=== PATIENT | female | born 1985 | race Caucasian/White ===

== ENCOUNTER → 2017-01-27 | Outpatient (CLI) | payer BC, OTHER ==
--- NOTE | 2017-01-27 17:20 | REP ---
RIGHT ANKLE, FOUR VIEWS: HISTORY: Pain. There is no acute fracture or dislocation. The joint space is normal in appearance. Minimal soft tissue swelling is present over the lateral malleolus . IMPRESSION: There is no acute fracture or dislocation. Signed by Ric Lockhart MD 01/27/2017 05:22 P
== END ==
LOC: M SMT 15:41
PROVIDERS: ATTEND Physician Assistant
DX: M25.571 Pain in right ankle and joints of right foot (principal)

== ENCOUNTER → 2017-06-22 | Outpatient (REF) | payer OTHER | LOC: M LAB REF 20:50 | PROVIDERS: ATTEND Physician Assistant Medical | DX: N30.01 Acute cystitis with hematuria (principal) ==

== ENCOUNTER → 2018-11-17 | Outpatient (REF) | payer OTHER ==
[2018-11-19 15:32] LABS: HPV HYBRID CAPTURE II Negative (Negative)
== END ==
LOC: M LAB REF 17:32
PROVIDERS: ATTEND Advanced Practice Midwife
DX: Z12.4 Encounter for screening for malignant neoplasm of cervix (principal)

== ENCOUNTER → 2018-11-17 | Outpatient (REF) | payer OTHER ==
[2018-11-17 20:55] LABS: CHLAMYDIA DNA AMPLIFICATION NEGATIVE (NEGATIVE); GC DNA AMPLIFICATION NEGATIVE (NEGATIVE)
== END ==
LOC: M LAB REF 17:04
PROVIDERS: ATTEND Advanced Practice Midwife
DX: Z11.3 Encounter for screening for infections with a predominantly sexual mode of transmission (principal)

== ENCOUNTER → 2019-11-15 | Outpatient (CLI) | payer BC, OTHER ==
[2019-11-15 18:01] LABS: HCG, SERUM QUALITATIVE POSITIVE (NEGATIVE)
[2019-11-16 09:43] LABS: HCG, SERUM QUANTITATIVE 42 MIU/ML
== END ==
LOC: M LAB 16:27
PROVIDERS: ATTEND Advanced Practice Midwife
DX: T83.9XXA Unspecified complication of genitourinary prosthetic device, implant and graft, initial encounter (principal)

== ENCOUNTER → 2019-11-17 | Outpatient (CLI) | payer BC, OTHER | LOC: M PLALAB 09:25 | PROVIDERS: ATTEND Advanced Practice Midwife | DX: T83.9XXA Unspecified complication of genitourinary prosthetic device, implant and graft, initial encounter (principal); Y83.2 Surgical operation with anastomosis, bypass or graft as the cause of abnormal reaction of the patient, or of later complication, without mention of misadventure at the time of the procedure ==

== ENCOUNTER → 2019-11-20 | Outpatient (CLI) | payer BC, OTHER ==
--- NOTE | 2019-11-21 02:37 | REP ---
Clinical: IUD evaluation. Positive test. Technique: Transabdominal pelvic ultrasound followed by transvaginal examination for better evaluation of the endometrium and adnexa with color Doppler evaluation of the ovaries. Findings: Bladder is collapsed. Heterogeneous anteverted uterus is identified measuring 8.8 x 4.5 x 5.8 cm. Endometrial complex measures 3 mm thickness. IUD is identified extending into the fundal region of the uterus. No intrauterine or decidual reaction is appreciated. The right ovary is normal in appearance and vascularity without torsion and measures 2.3 x 2.4 x 2.2 cm (RI 0.55). The left ovary measures 3.1 x 2.3 x 2.4 cm (RI 0.61) and includes a complex 1.4 x 0.7 x 1.5 cm collection with surrounding vascularity as well as small amount of free fluid in the left adnexa and posterior cul-de-sac. Impression: 1. Normal appearance to the uterus with IUD identified and no evidence for decidual reaction or intrauterine . 2. Complex area at the left ovary with surrounding vascularity and small amount of free fluid. Findings are nonspecific and differential diagnosis includes resolving corpus luteum cyst, hemorrhagic physiologic cyst, and less likely ectopic cannot definitively be excluded. Correlation with serial HCG levels and close clinical observation may be warranted.
== END ==
LOC: M WHC 11-16 15:46
PROVIDERS: ATTEND Advanced Practice Midwife
DX: T83.9XXA Unspecified complication of genitourinary prosthetic device, implant and graft, initial encounter (principal); Y83.2 Surgical operation with anastomosis, bypass or graft as the cause of abnormal reaction of the patient, or of later complication, without mention of misadventure at the time of the procedure

== ENCOUNTER → 2019-11-20 | Outpatient (CLI) | payer BC ==
[2019-11-20 14:02] LABS: HCG, SERUM QUALITATIVE POSITIVE (NEGATIVE)
[2019-11-21 09:03] LABS: HCG, SERUM QUANTITATIVE 35 MIU/ML
== END ==
LOC: M PLALAB 11:04
PROVIDERS: ATTEND Advanced Practice Midwife
DX: T83.9XXA Unspecified complication of genitourinary prosthetic device, implant and graft, initial encounter (principal); Y83.2 Surgical operation with anastomosis, bypass or graft as the cause of abnormal reaction of the patient, or of later complication, without mention of misadventure at the time of the procedure

== ENCOUNTER → 2019-11-28 | Outpatient (REF) | payer OTHER | LOC: M LABDRWAD 15:04 → M LAB REF 15:04 | PROVIDERS: ATTEND Advanced Practice Midwife | DX: T83.9XXA Unspecified complication of genitourinary prosthetic device, implant and graft, initial encounter (principal); Y83.2 Surgical operation with anastomosis, bypass or graft as the cause of abnormal reaction of the patient, or of later complication, without mention of misadventure at the time of the procedure ==

== ENCOUNTER → 2019-12-11 | Outpatient (CLI) | payer BC, OTHER ==
--- NOTE | 2019-12-11 11:49 | REP ---
Clinical: Pelvic pain. Technique: Transabdominal pelvic ultrasound followed by transvaginal examination for better evaluation of the endometrium and adnexa with color evaluation of the ovaries. Findings: Bladder is incompletely distended but grossly normal in appearance. Normal anteverted uterus measures 9.6 x 4.6 x 5.8 cm. Endometrial complex measures 3.1 mm thickness. The bilateral ovaries are normal in vascularity without torsion. Right ovary measures 3.9 x 3.0 x 2.6 cm and includes multiple follicles along with 2.2 cm physiologic cyst / dominant follicle. Left ovary measures 3.1 x 2.0 x 2.7 cm and includes multiple small follicles. No pelvic fluid or adnexal mass lesion. Impression: 1. Essentially normal examination. 2. 2.2 cm simple likely physiologic cyst in the right ovary. If necessary consider reevaluation in 4-6 weeks to evaluate for resolution.
== END ==
LOC: M WHC 10:36
PROVIDERS: ATTEND Advanced Practice Midwife
DX: R10.2 Pelvic and perineal pain (principal)

== ENCOUNTER → 2019-12-21 | Outpatient (REF) | payer OTHER ==
[2019-12-21 16:07] LABS: CHLAMYDIA DNA AMPLIFICATION NEGATIVE (NEGATIVE); GC DNA AMPLIFICATION NEGATIVE (NEGATIVE)
== END ==
LOC: M SFHCWAGY 13:42
PROVIDERS: ATTEND Advanced Practice Midwife
DX: Z30.430 Encounter for insertion of intrauterine contraceptive device (principal)

== ENCOUNTER → 2021-03-18 | Outpatient (REF) | payer OTHER | LOC: M SFHCWAGY 16:44 | PROVIDERS: ATTEND Advanced Practice Midwife | DX: O36.80X0 Pregnancy with inconclusive fetal viability, not applicable or unspecified (principal); Z3A.00 Weeks of gestation of pregnancy not specified ==

== ENCOUNTER → 2021-03-20 | Outpatient (REF) | payer OTHER | LOC: M PLALAB 09:55 | PROVIDERS: ATTEND Advanced Practice Midwife | DX: O36.80X0 Pregnancy with inconclusive fetal viability, not applicable or unspecified (principal) ==

== ENCOUNTER → 2021-04-04 | Outpatient (REF) | payer OTHER | LOC: M PLALAB 12:40 | PROVIDERS: ATTEND Obstetrics & Gynecology | DX: Z36.89 Encounter for other specified antenatal screening (principal); Z3A.09 9 weeks gestation of pregnancy ==

== ENCOUNTER → 2021-04-30 | Outpatient (CLI) | payer OTHER ==
[2021-04-30 17:26] LABS: BASO % 0.4 % (0.0-1.0); EOS # 0.1 10^3/uL (0.0-0.5); EOS % 1.2 % (0.0-3.0); HEMATOCRIT 35.7 % (36.0-47.0); HEMOGLOBIN 12.1 g/dl (12.0-15.5); LYMPH # 1.7 10^3/uL (1.5-5.0); LYMPH % 22.4 % (24.0-44.0); MEAN CORPUSCULAR HEMOGLOBIN 32.1 pg (27.0-33.0); MEAN CORPUSCULAR HGB CONC 33.9 g/dl (32.0-36.5); MEAN CORPUSCULAR VOLUME 94.7 fl (80.0-96.0); MONO # 0.4 10^3/uL (0.0-0.8); NEUTROPHILS # 5.2 10^3/uL (1.5-8.5); NEUTROPHILS % 70.7 % (36.0-66.0); PLATELET COUNT, AUTOMATED 186 10^3/uL (150-450); RED BLOOD COUNT 3.77 10^6/uL (4.00-5.40); WHITE BLOOD COUNT 7.4 10^3/uL (4.0-10.0)
[2021-04-30 18:34] LABS: HIV 1&2 SCREEN CENTAUR NEGATIVE (NEGATIVE)
[2021-04-30 20:30] LABS: GC DNA AMPLIFICATION NEGATIVE (NEGATIVE)
== END ==
LOC: M PLALAB 15:51
PROVIDERS: ATTEND Obstetrics & Gynecology
DX: Z36.89 Encounter for other specified antenatal screening (principal); Z3A.09 9 weeks gestation of pregnancy

== ENCOUNTER → 2021-06-02 | Outpatient (REF) | payer OTHER | LOC: M SFHCWAGY 16:55 | PROVIDERS: ATTEND Advanced Practice Midwife | DX: Z34.92 Encounter for supervision of normal pregnancy, unspecified, second trimester (principal) ==

== ENCOUNTER → 2021-06-16 | Outpatient (CLI) | payer BC, OTHER ==
--- NOTE | 2021-06-16 15:52 | REP ---
INDICATION: ANATOMY COMPARISON: None. TECHNIQUE: Transabdominal obstetrical ultrasound with color Doppler evaluation. FINDINGS: Examination demonstrates a single live intrauterine in transverse presentation. motion is identified by technologist. Placenta is noted posterior and grade 1 without evidence for placenta previa or abruption. Amniotic fluid volume is normal. Cervix measures 4.7 in length and appears closed.. Selected gestational age: 20 weeks 4 days with AMIRA 10/30/2021. Gestational age by current measurements 20 weeks 4 days with AMIRA 10/30/2021. FHR equals 140 beats per minute. Estimated weight 352 grams (37thpercentile). Anatomical assessment demonstrates normal structures including cranium, choroid plexus, cavum, cerebellum/posterior fossa, facial features, lungs, diaphragm, stomach, cord insertion/three-vessel cord, kidneys/bladder, spine, and extremities. IMPRESSION: Single live intrauterine in transverse lie demonstrating appropriate estimated weight/growth. Limited evaluation of the heart/ventricular outflow tracts. Remainder of the anatomical assessment is complete and normal. <Electronically signed by Jac Vo > 06/16/21 [id number]
== END ==
LOC: M WHC 14:20
PROVIDERS: ATTEND Advanced Practice Midwife
DX: O34.219 Maternal care for unspecified type scar from previous cesarean delivery (principal)

== ENCOUNTER → 2021-08-15 | Outpatient (CLI) | payer BC, OTHER ==
--- NOTE | 2021-08-15 09:39 | REP ---
INDICATION: F/U ANATOMY COMPARISON: 06/16/2021 TECHNIQUE: Transabdominal obstetrical ultrasound with color Doppler evaluation. FINDINGS: Examination demonstrates a single live intrauterine in transverse presentation. motion is identified by technologist. Placenta is noted posterior and grade 1 without evidence for placenta previa or abruption. Amniotic fluid volume is normal. Cervix measures 5.8 cm in length and appears closed.. Selected gestational age: 29 weeks 1 day with AMIRA 10/30/2021. Gestational age by current measurements 29 weeks 2 days with AMIRA 10/29/2021. FHR equals 146 beats per minute. Estimated weight 1369 grams (43rdpercentile). Continued limited evaluation of the heart/ventricular outflow tracts due to positioning. IMPRESSION: Single live intrauterine in transverse lie demonstrating appropriate estimated weight/growth. Continued limited evaluation of the heart/ventricular outflow tracts due to positioning. <Electronically signed by Jac Vo > 08/15/21 0924
== END ==
LOC: M WHC 07:06
PROVIDERS: ATTEND Obstetrics & Gynecology
DX: Z36.2 Encounter for other antenatal screening follow-up (principal); O34.211 Maternal care for low transverse scar from previous cesarean delivery; Z3A.29 29 weeks gestation of pregnancy

== ENCOUNTER → 2021-08-15 | Outpatient (CLI) | payer BC, OTHER ==
[2021-08-15 10:09] LABS: HEMATOCRIT 36.6 % (36.0-47.0); HEMOGLOBIN 12.4 g/dl (12.0-15.5); MEAN CORPUSCULAR HEMOGLOBIN 32.5 pg (27.0-33.0); MEAN CORPUSCULAR HGB CONC 33.9 g/dl (32.0-36.5); MEAN CORPUSCULAR VOLUME 95.8 fl (80.0-96.0); PLATELET COUNT, AUTOMATED 173 10^3/uL (150-450); RED BLOOD COUNT 3.82 10^6/uL (4.00-5.40)
== END ==
LOC: M PLALAB 07:50
PROVIDERS: ATTEND Obstetrics & Gynecology
DX: Z36.89 Encounter for other specified antenatal screening (principal); O34.211 Maternal care for low transverse scar from previous cesarean delivery; Z3A.00 Weeks of gestation of pregnancy not specified
CPT/HCPCS: 36415; 82950; 85027; 86850; 86900; 86901; 87088; 87186; J2790

== ENCOUNTER → 2021-10-02 | Outpatient (REF) | payer BC, OTHER ==
[~2021-10-02] MED LIST: OMEP1CAP73 PO; PRENTAB53 PO; SERT50TA29 PO
== END ==
LOC: M SFHCWAGY 17:38
PROVIDERS: ATTEND Obstetrics & Gynecology
DX: O34.211 Maternal care for low transverse scar from previous cesarean delivery (principal)

== ENCOUNTER 2021-10-20 15:04 | Inpatient (IN) | payer BC, OTHER ==
[2021-10-20] VITALS (11 sets, daily range): BP systolic 97–134; BP diastolic 54–65
[~2021-10-20] VITALS: Ht 175.3 cm; Wt 89.5 kg
[2021-10-20] MEDS ORDERED: HOME MED LIST COMPLETE! XX SCH (15:40)
[2021-10-20] MEDS ORDERED: CARBOPROST TROMETHAMINE 250 MCG/ML AMP IM PRN (17:55)
[2021-10-20] MEDS ORDERED: LIDOCAINE 1% MDV 20ML VIAL INFIL PRN (17:55)
[2021-10-20] MEDS ORDERED: TRANEXAMIC ACID INJection 1,000 MG in NS 100 ML IV PRN (17:55)
[2021-10-20] MEDS ORDERED: OXYTOCIN DRIP 30 UNITS in IV 1 EA IV PRN (17:55)
[2021-10-20] MEDS ORDERED: METHYLERGONOVINE MALEATE 0.2 MG/ML VIAL (J2210) IM PRN (17:55)
[2021-10-20] MEDS ORDERED: LR 1,000 ML IV SCH (17:55)
[2021-10-20] MEDS ORDERED: LACTATED RINGER'S 1000 ML IV STA (17:55)
--- NOTE | 2021-10-20 18:03 | HPEPDOC ---
Obstetrical History & Physical General Date of Admission Oct 20, 2021 at 17:46 Primary Care Physician: JOEL HA CNM History of Present Illness Victoria is a 36-year-old at 38.1 weeks gestation with an AMIRA of 11/02/21 based off of her LMP. She initiated care at [facility] in her first trimester. Her has been complicated by a prior section for non-reassuring FHR. She plans a TOLAC if spontaneous labor. Her has also been complicated by depression and anxiety, which she was started on Zoloft 50 mg in her third trimester of . She presents to labor and delivery today with complaints of contractions every 2-3 minutes that started after 1200. She was 1 cm dilated and was admitted after she ruptured spontaneously to a moderate amount of meconium. Information Provided By: Patient Age: 36 : 4 Term: 2 Pre-term: 0 Abortions: 1 Livin Care Care: Good Care Dating Final EDC: Nov 02, 2021 Final EDC by: LMP EGA at Admission: 38.1 Antepartum Course Diagnos(e)s history of LTCS Height (inches): 34 Pre- weight (lbs.): 160 Admission Weight (lbs.): 186 Change in Weight (lbs.): 26 Past Medical History Past Obstetrical History #1: Past Obstetrical History: Primgravida Date of Delivery: Apr 09, 2009 Gestation: 40 Type of Delivery: Spontaneous Vaginal Del. Sex of : Female (7 lbs 14 oz) Complications: No Past Obstetrical History #2: Past Obstetrical History: Multigravida Date of Delivery: Mar 30, 2010 Gestation: 40 Type of Delivery: Ceserean section Sex of : Female (9 lbs 10 oz) Complications: Yes (non-reassuring FHR) FLOUR BROKER History: Spontaneous Past Medical History Medical History Varicose veins Surgical History: section, Other (vein stripping) Family History Significant Family History: No pertinent family hx Social History Marital Status: Single Family situation: Spouse/partner home Psychosocial History: Anxiety, Depression (was started on Zoloft in third trimester) * Smoker: non-smoker Alcohol: Denies Drugs: denies Abuse Violence Screening Have you been hit/kicked/slapp: No Have you been sexually assault: No Imunizations Tdap status: current Allergies Coded Allergies: No Known Allergies (Unverified , 10/20/21) Medications Scheduled Omeprazole (Omeprazole) 20 Mg Capsule.dr, 20 MG PO DAILY Vit,Calc76/Iron/Folic (Prenatabs Rx Tablet) 1 Each Tablet, 1 TAB PO DAILY Sertraline HCl (Sertraline HCl) 50 Mg Tablet, 50 MG PO DAILY Physical Examination Physical Examination GENERAL: Alert and oriented times three. BREAST: . ABDOMEN: Gravid and non-tender to touch. FETUS: Is vertex (VTX) by sterile vaginal examination (SVE), fetus is vertex (VTX) by [place]. HEART RATE: Regular rate and rhythm. LUNGS: Clear to auscultation (CTA). EXTREMITIES: No edema. No clonus. Deep tendon reflexes (DTRs) + . Vital Signs/I&O Vital Signs Date Time Temp Pulse Resp B/P (MAP) Pulse Ox O2 Delivery O2 Flow Rate FiO2 10/20/21 16:51 81 18 97/60 (72) 10/20/21 15:33 97.9 Laboratory Data 24[facility] Laboratory Tests 2 10/20/21 17:51: Serology Scanned Report Hepatitis B Testing Urine Culture: Escherichia (E.) Coli Pertinent Laboratoy Data Blood Type: A- RBC Antibody Screen: Negative HIV: Negative Hepatitis B: Negative Hepatitis C: Negative Rapid Plasma Reagin: Nonreactive Rubella: Immune Chlamydia/Gonorrhea: Negative Group B Streptococcus: Negative Glucose Tolerance Test: 123 Vaginal Examination Dilation: 1cm Effacement: 90% Station: -1 Cervical Consistency: Soft Cervical Position: Anterior Presentation: Cephalic presentation Assessment Heart Rate (FHR): 125 Variability: Moderate Accelerations: Positive Decelerations: None Tocometer Contractions: Yes Frequency: regular, every 2-2 min. Multi-drug resistant Organism: No history of MDRO Assessment/Plan Assessment IUP at 38.1 weeks gestation spontaneous rupture of meconium TOLAC GBS negative Category I FHR tracing Plan Admit to labor and delivery. Dr. Abdi aware that patient is in department and will notified when she is in active labor. OOB ad fabian. Diet: clears. Group B Streptococcus (GBS) negative. Labs and intravenous (IV) per unit protocol. Counseled on TOLAC. Reviewed risks, benefits and alternatives. Patient requesting TOLAC. Requesting and epidural. Anesthesia aware of patient being in department. Lactated Ringers (LR): Bolus 800 mL prior to epidural, then at 125 mL/hr. Anticipate cervical change and vaginal delivery. C-S as appropriate. JOEL AH CNM Oct 20, 2021 18:03
[2021-10-20 18:15] LABS: HEMATOCRIT 35.9 % (36.0-47.0); HEMOGLOBIN 12.5 g/dl (12.0-15.5); MEAN CORPUSCULAR HEMOGLOBIN 32.2 pg (27.0-33.0); MEAN CORPUSCULAR HGB CONC 34.8 g/dl (32.0-36.5); MEAN CORPUSCULAR VOLUME 92.5 fl (80.0-96.0); PLATELET COUNT, AUTOMATED 165 10^3/uL (150-450); RED BLOOD COUNT 3.88 10^6/uL (4.00-5.40); WHITE BLOOD COUNT 10.8 10^3/uL (4.0-10.0)
[2021-10-20] MEDS ORDERED: MORPHINE 4 MG/ML 1ML VIAL/SYRINGE (J2270) As Ordered ONE (19:33)
[2021-10-20] MEDS ORDERED: MORPHINE 4 MG/ML 1ML VIAL/SYRINGE (J2270) IV ONE (20:10)
[2021-10-20] MEDS ORDERED: AMPICILLIN SOD/SULBACTAM SOD 3 GM in D5W MINI-BAG PLUS 100 ML IV ONE (20:10)
--- NOTE | 2021-10-20 20:49 | DNPDOC ---
[facility] Delivery Note Delivery Note DATE OF DELIVERY: 10/20/21 at 1904 PREDELIVERY DIAGNOSIS: 38-1/7 weeks' gestation and labor. POST DELIVERY DIAGNOSIS: Delivered. PROCEDURE: . Vaginal delivery after section. LOCOMOTIVE FIRER: Joel Leach CNM, ELISA ANESTHESIA: none. ESTIMATED BLOOD LOSS: 400 mL. FINDINGS: 8 pounds 3 ounces; 3710 grams; male , Score 8/9, nuchal cord times 1 tight, meconium, precipitous delivery, , polydactyly, manual removal of placenta, succenturiate lob. DELIVERY SUMMARY: Victoria is a 36-year-old female who is now a who presented to labor and delivery ruby. She spontaneously ruptured meconium fluid at 1736 and quickly progressed to fully dilated at 1902. She pushed to a living male in the NIC position with restitution to ROT. A tight nuchal cord was noted and not reduced. The anterior shoulder delivered with ease and the corpus delivered via [place]. The baby was placed [id number] active and crying with stimulation. The cord was clamped x2 after pulsation ceased and cut by the FOB. A 3-vessel cord was noted. IV Pitocin was started after the cord was clamped and cut. AFter 30 minutes the patient was offered manual removal of placenta. She was given 4 mg of IV Morphine and the placenta was removed manually and intact. A succenturiate lobe was noted. Uterine hemostasis was achieved and an additional manual sweep of the uterus was done. A dose of Unasyn was ordered via IV to help prevent uterine infection. She tolerated the procedure well. The uterus palpated at umbilicus after removal. The vagina, cervix and perineum was inspected and found to have a first degree perineal laceration that was repaired with a 3.[address]-1 after 1% Lidocaine was used. She plans to breastfeed her and was able to do so after delivery. They are naming him Oscar. Both mom and baby are in stable condition. All counts of instruments and sponges are correct. JOEL LEACH CNM Oct 20, 2021 20:49
[2021-10-20] MEDS ORDERED: RHOGAM 300 MCG (1500 IU) INJ (J2790) IM SCH (20:50)
[2021-10-20] MEDS ORDERED: ACETAMINOPHEN 500 MG TAB PO PRN (20:50)
[2021-10-20] MEDS ORDERED: ANUSOL HC CREAM 30GM TOP PRN (20:50)
[2021-10-20] MEDS ORDERED: DIBUCAINE 1% OINTMENT 30GM TOP PRN (20:50)
[2021-10-20] MEDS ORDERED: ACETAMINOPHEN TAB 650MG DOSE (2X325MG) PO PRN (20:50)
[2021-10-20] MEDS ORDERED: METHYLERGONOVINE MALEATE 0.2 MG TAB PO PRN (20:50)
[2021-10-20] MEDS ORDERED: IBUPROFEN 600MG TAB PO PRN (20:50)
[2021-10-20] MEDS ORDERED: MEASLES,MUMPS,RUBELLA VACCINE INJ (MMR-II) (90707) SC SCH (20:50)
[2021-10-20] MEDS ORDERED: DOCUSATE SODIUM 100MG CAPSULE PO PRN (20:50)
[2021-10-20] MEDS: SERTRALINE HCL 50 MG TAB PO SCH (21:08)
[2021-10-21] MEDS: IBUPROFEN 800 MG TAB PO PRN ×2 (04:17→17:55)
[2021-10-21 05:52] VITALS: BP 131/74
--- NOTE | 2021-10-21 07:32 | IPNPDOC ---
Text Note Date of Service The patient was seen on 10/21/21. NOTE POst note S: no complaints O: AVSS NAD Abd: NT, FF ext:NT A/P PPD#1 s/p routine PP care VS,Fishbone, I+O VS, Fishbone, I+O Laboratory Tests 10/20/21 18:02 Vital Signs Date Time Temp Pulse Resp B/P (MAP) Pulse Ox O2 Delivery O2 Flow Rate FiO2 10/21/21 05:52 98.7 77 16 131/74 (93) I&O- Last 24 Hours up to 6 AM 10/21/21 06:00 Intake Total 2901 ml Output Total 550 ml Balance 2351 ml PATRIZIA KEENAN MD Oct 21, 2021 07:31
[2021-10-21] MEDS: PRENATAL VITAMINS CHEWABLE TABLET PO SCH (09:51)
[2021-10-21 18:00] VITALS: BP 112/60
[2021-10-21] MEDS: SERTRALINE HCL 50 MG TAB PO SCH (20:17)
[2021-10-22 05:10] VITALS: BP 119/60
[2021-10-22] MEDS: PRENATAL VITAMINS CHEWABLE TABLET PO SCH (08:34)
[2021-10-22] MEDS: IBUPROFEN 800 MG TAB PO PRN (08:35)
== END 2021-10-22 12:15 | disposition home or self-care (01) | DRG 541 ==
LOC: M LDO 15:04 → M LDI 17:46 → M OBS 21:17
PROVIDERS: ADMIT Advanced Practice Midwife; ATTEND Advanced Practice Midwife
PROC: 10E0XZZ Delivery of Products of Conception, External Approach (ICD-10-PCS; principal; 2021-10-20)
PROC: 10D17Z9 Manual Extraction of Products of Conception, Retained, Via Natural or Artificial Opening (ICD-10-PCS; 2021-10-20)
PROC: 0HQ9XZZ Repair Perineum Skin, External Approach (ICD-10-PCS; 2021-10-20)
DX: O34.211 Maternal care for low transverse scar from previous cesarean delivery (principal); F32.9 Major depressive disorder, single episode, unspecified; Z37.0 Single live birth; Z3A.38 38 weeks gestation of pregnancy; F41.9 Anxiety disorder, unspecified; O99.344 Other mental disorders complicating childbirth; O77.0 Labor and delivery complicated by meconium in amniotic fluid; O69.1XX0 Labor and delivery complicated by cord around neck, with compression, not applicable or unspecified; O62.3 Precipitate labor; O43.199 Other malformation of placenta, unspecified trimester; O70.0 First degree perineal laceration during delivery

== ENCOUNTER → 2022-01-23 | Outpatient (REF) | payer OTHER | LOC: M PLALAB 15:25 | PROVIDERS: ATTEND Advanced Practice Midwife | DX: Z01.419 Encounter for gynecological examination (general) (routine) without abnormal findings (principal); Z12.4 Encounter for screening for malignant neoplasm of cervix ==

== ENCOUNTER → 2022-01-23 | Outpatient (REF) | payer OTHER | LOC: M SFHCWAGY 15:43 | PROVIDERS: ATTEND Advanced Practice Midwife | DX: Z01.419 Encounter for gynecological examination (general) (routine) without abnormal findings (principal); Z12.4 Encounter for screening for malignant neoplasm of cervix ==

== ENCOUNTER → 2023-02-12 | Outpatient (REF) | payer OTHER | LOC: M PLALAB 11:22 | PROVIDERS: ATTEND Nurse Practitioner Family | DX: Z12.4 Encounter for screening for malignant neoplasm of cervix (principal) | CPT/HCPCS: 87624; G0123 ==

== ENCOUNTER → 2023-03-12 | Outpatient (CLI) | payer BC, OTHER ==
[2023-03-12 09:08] LABS: HEMATOCRIT 43.1 % (36.0-47.0); HEMOGLOBIN 14.6 g/dl (12.0-15.5); MEAN CORPUSCULAR HGB CONC 33.9 g/dl (32.0-36.5); MEAN CORPUSCULAR VOLUME 94.5 fl (80.0-96.0); PLATELET COUNT, AUTOMATED 208 10^3/uL (150-450); RED BLOOD COUNT 4.56 10^6/uL (4.00-5.40); WHITE BLOOD COUNT 4.7 10^3/uL (4.0-10.0)
[2023-03-12 09:28] LABS: HEMOGLOBIN A1c 4.8 % (4.0-6.0)
[2023-03-12 09:32] LABS: ALBUMIN 4.1 G/DL (3.2-5.2); ALKALINE PHOSPHATASE 74 U/L (46-116); ALT/SGPT 16 U/L (7.0-40); AST/SGOT 11 U/L (<34); BILIRUBIN,TOTAL 0.9 MG/DL (0.3-1.2); BLOOD UREA NITROGEN 17 MG/DL (9-23); CALCIUM LEVEL 9.7 MG/DL (8.5-10.1); CARBON DIOXIDE LEVEL 28 MMOL/L (20-31); CHLORIDE LEVEL 107 MMOL/L (98-107); CHOLESTEROL LEVEL 139 MG/DL (<200); CHOLESTEROL RISK RATIO 2.55 (<5); CREATININE FOR GFR 0.67 MG/DL (0.55-1.30); GLOMERULAR FILTRATION RATE > 60.0 (>60); GLUCOSE, FASTING 96 MG/DL (60-100); HDL CHOLESTEROL 54.5 MG/DL (>40); LDL CHOLESTEROL 75.5 MG/DL (<100); NON-HDL-C 84.5 MG/DL; POTASSIUM SERUM 3.9 MMOL/L (3.5-5.1); SODIUM LEVEL 139 MMOL/L (136-145); TRIGLYCERIDES LEVEL 45 MG/DL (<150)
[2023-03-12 09:36] LABS: THYROID STIMULATING HORMONE 0.814 uIU/ML (0.55-4.78)
[2023-03-12 09:37] LABS: TOTAL 25(OH) VITAMIN D 33.7 NG/ML (20.0-100.0)
== END ==
LOC: M RAD 08:22
PROVIDERS: ATTEND Family Medicine
DX: R53.83 Other fatigue (principal); E03.9 Hypothyroidism, unspecified

== ENCOUNTER → 2023-03-25 | Outpatient (CLI) | payer BC, OTHER | LOC: M ADAMS 13:38 | PROVIDERS: ATTEND Family Medicine | DX: G89.29 Other chronic pain (principal) ==